=== PATIENT | male | born 1990 | race Caucasian/White ===

== ENCOUNTER 2025-01-25 21:55 | Emergency (ER) | payer OTHER | END 2025-01-26 00:34 | disposition home or self-care (01) | LOC: MADERS 21:55 | DX: S93.402A Sprain of unspecified ligament of left ankle, initial encounter (principal); F17.210 Nicotine dependence, cigarettes, uncomplicated; W17.89XA Other fall from one level to another, initial encounter; Y99.0 Civilian activity done for income or pay | CPT/HCPCS: 99283 ==